=== PATIENT | female | born 1935 | race African-American/Black ===

== ENCOUNTER 2020-05-20 17:04 | Emergency (ER) | payer MEDICARE ==
[~2020-05-20] VITALS: Ht 160 cm; Wt 81.6 kg
[2020-05-20] MEDS ORDERED: FERROUS SULFAT324 MG (18:35)
[2020-05-20] MEDS ORDERED: AMLODIPINE BESYL5 MG PO (18:35)
[2020-05-20] MEDS ORDERED: DOCUSATE SODIU100 MG PO (18:35)
[2020-05-20] MEDS ORDERED: METOPROLOL SUCC25 MG (18:35)
[2020-05-20] MEDS ORDERED: EUTHYROX25 MCG (18:35)
[2020-05-20] MEDS ORDERED: ALLOPURINOL100 MG PO (18:35)
[2020-05-20] MEDS ORDERED: LASIX40 MG PO (18:35)
[2020-05-20] MEDS ORDERED: VITAMIN B-650 MG (18:35)
[2020-05-20] MEDS ORDERED: ZYRTEC10 M3 (18:35)
[2020-05-20] MEDS ORDERED: PROTONIX20 MG PO (18:35)
[2020-05-20] MEDS ORDERED: CEPHALEXIN500 MG PO (21:01)
[2020-05-20] MEDS ORDERED: TYLENOL # 31 EA PO (21:02)
== END 2020-05-20 21:17 | disposition home or self-care (01) ==
LOC: FSED 17:10
DX: M17.12 Unilateral primary osteoarthritis, left knee (principal); M25.562 Pain in left knee; M71.22 Synovial cyst of popliteal space [Baker], left knee; M25.462 Effusion, left knee; I87.2 Venous insufficiency (chronic) (peripheral); I10 Essential (primary) hypertension; E03.9 Hypothyroidism, unspecified; Z85.038 Personal history of other malignant neoplasm of large intestine
CPT/HCPCS: 80053; 81003; 85025; 93971; 99284